=== PATIENT | male | born 2000 | race Caucasian/White ===

== ENCOUNTER 2020-04-16 18:26 | Emergency (ER) | payer OTHER ==
[~2020-04-16] VITALS: Ht 185.4 cm; Wt 87.2 kg
[2020-04-16] MEDS: LIDOCAINE 1% Multi-Dose 20 ML VIAL. IJ ONE (19:39)
[2020-04-16] MEDS: TETANUS AND DIPHTHERIA TOX/PF 0.5 ML VIAL. VAX IM ONE (19:41)
--- NOTE | 2020-04-16 19:54 | PHYS DOC ---
Past History Past Medical History: No Pertinent History Past Surgical History: No Surgical History Alcohol Use: None General Adult EDM: Chief Complaint: LACERATION/AVULSION HPI: HPI: Patient is a 19-year-old right-handed male who was cleaning knives at [employer] and sustained a laceration to the right middle finger. Patient complains of moderate pain on the right middle finger. Patient denies any weakness but has some mild tingling on the right fingertip. No other injuries. Pain is described as moderate in intensity, bleeding is controlled Review of Systems: Review of Systems: Constitutional: Denies fever or chills Eyes: Denies change in visual acuity HENT: Denies sore throat Respiratory: Denies cough or shortness of breath Cardiovascular: Denies chest pain or edema GI: Denies abdominal pain, nausea, vomiting, or diarrhea : Denies dysuria Musculoskeletal: Denies back pain or joint pain Integument: Denies rash Neurologic: Denies headache or focal weakness Psychiatric: Denies depression or anxiety Heart Score: Risk Factors: Risk Factors: DM, Current or recent (<one month) smoker, HTN, HLP, family history of CAD, obesity. Risk Scores: Score 0 - 3: 2.5% MACE over next 6 weeks - Discharge Home Score 4 - 6: 20.3% MACE over next 6 weeks - Admit for Clinical Observation Score 7 - 10: 72.7% MACE over next 6 weeks - Early Invasive Strategies Current Medications: Current Meds: Current Medications Medications (Trade) Dose Ordered Sig/[facility] Start Time Stop Time Status Last Admin Dose Admin Lidocaine HCl 20 ml 1X ONCE 04/16/20 19:00 04/16/20 19:05 DC 04/16/20 19:39 20 ML Tetanus/ Diphtheria Toxoids Adsorbed (Tenivac Vial) 0.5 ml ONCE ONCE 04/16/20 19:30 04/16/20 19:31 DC 04/16/20 19:41 0.5 ML Allergies: Allergies: Allergies Coded Allergies Type Severity Reaction Last Updated Verified No Known Drug Allergies 04/16/20 No Physical Exam: PE: Constitutional: Well developed, well nourished, no acute distress, non-toxic appearance. HENT: No trismus, external ears normal Eyes: Conjunctiva clear, EOMI Neck: Normal range of motion, no tenderness, supple, no stridor. Cardiovascular: Regular rate/rhythm, peripheral pulse intact, EXPLOSION WELDER intact Lungs & Thorax: No respiratory distress Abdomen: No distension Skin: Diffuse: Intact, no rash, 2.5 cm laceration that is vertically oriented on the right palmar third distal phalanx mild decrease sensation distally. Motor intact. Back: Full ROM Extremities: Normal inspection, no edema 2.5 cm laceration on the right distal finger middle Neurologic: Alert and oriented X 3, normal motor function, , mild tingling to the right distal finger, motor intact Psychologic: Affect normal, judgement normal, mood normal. Current Patient Data: Vital Signs: Vital Signs Date Time Temp Pulse Resp B/P (MAP) Pulse Ox O2 Delivery O2 Flow Rate FiO2 04/16/20 18:34 98.4 91 18 144/79 (100) 96 Room Air EKG: EKG: [] Radiology/Procedures: Radiology/Procedures: [] Course & Med Decision Making: Course & Med Decision Making Pertinent Labs and Imaging studies reviewed. (See chart for details) [] Laceration repair note: Right index finger was anesthetized using an alcohol prep and a digital block with 1% lidocaine 3 cc were used to anesthetize to injection sites on a dorsal approach. Good anesthesia was obtained. The laceration was then cleansed with normal saline copiously. Laceration was then repaired with four 5-0 Ethilon simple interrupted sutures. No complications. Laceration was 2.5 cm in length Dragon Disclaimer: Dragbalbir Disclaimer: This electronic medical record was generated, in whole or in part, using a voice recognition dictation system. Departure Departure: Impression: Primary Impression: Laceration of right middle finger Disposition: HOME/RESIDENCE PRIOR TO ADM Condition: STABLE Referrals: PALMER PÉREZ MD (PCP) Stitches out in 10 days Patient Instructions: Fingertip Laceration, Laceration Care, Adult Additional Instructions: EMERGENCY DEPARTMENT GENERAL DISCHARGE INSTRUCTIONS Thank you for coming to the emergency Department (ED) today and trusting us with you care. We trust that you had a positivie experience in our Emergency Department. YOUR FOLLOW UP INSTRUCTIONS ARE FOLLOWS: 1. Do you have a private Doctor? If you do not have a private doctir, please ask for a resource list of physicians or clinics that may be able to assist you with follow up care. 2. The Emergency Physicain has interpreted your x-rays. The X-Ray specialist will also review them. If there is a change in the findingd, you will be notified in 48 hours when at all possible. 3. A lab test or culture has been done, your results will be reviewed and you will be notified if you need a change in treatment. ADDITIONAL INSTRUCTIONS AND INFORMATION: 1. Your care today has been supervised by a physician who is specially trained in emergency care. Many problems require more than one evaluation for a complete diagnosis and treatment. We recommend that you schedule your follow up appointment as recommended to ensure complete treatment of you illness or injury. If you are unable to obtain follow up care and continue to have a problem, or if your consition worsens, we recommend that you return to the ED. 2. We are not able to safelymdetermine your condition over the phone nor are we able to give sound medical advice over the phone. For these safety reasons, if you call for medical advice we will ask you to come to the ED for further evaluation. 3. If you have any questions regarding these discharge instructions please call the ED at [phone]. SAFETY INFORMATION: In the interest of safety, wellness, and injury prevention; we encourage you to wear your sealbelt, if you smoke; quite smoking, and we encourage family to use a protective helmet for bicycling and other sporting events that present an increased risk for head injusry. IF YOUR SYMPTOMS WORSEN OR NEW SYMPTOMS DEVELOP, OR YOU HAVE CONCERNS ABOUT YOUR CONDITION; OR IF YOUR CONDITION WORSENS WHILE YOU ARE WAITING FOR YOUR FOLLOW UP APPOINTMENT; EITHER CONTACT YOUR PRIMARY CARE DOCTOR, THE PHYSICIAN WHOSE NAME AND NUMBER YOU WERE GIVEN, OR RETURN TO THE ED IMMEDIATELY. Justification of Admission: Justification of Admission: Justification of Admission Dx: N/A KANIKA TAYLOR MD Apr 16, 2020 19:54
[2020-04-16 19:58] VITALS: BP 141/73
== END 2020-04-16 20:18 | disposition home or self-care (01) ==
LOC: ER 18:26
DX: S61.212A Laceration without foreign body of right middle finger without damage to nail, initial encounter (principal); W26.0XXA Contact with knife, initial encounter; Y93.89 Activity, other specified; Y92.89 Other specified places as the place of occurrence of the external cause; Y99.8 Other external cause status
CPT/HCPCS: 12001; 90471; 90714; 99283

== ENCOUNTER 2020-04-27 08:54 | Emergency (ER) | payer OTHER ==
[~2020-04-27] VITALS: Ht 185.4 cm; Wt 85.6 kg
[2020-04-27] MEDS ORDERED: NEOMY/BACITR/POLYMYXIN OINT PACKET. TP ONE (09:15)
--- NOTE | 2020-04-27 09:24 | PHYS DOC ---
Past History Past Medical History: No Pertinent History Past Surgical History: No Surgical History Alcohol Use: Occasionally General Adult EDM: Chief Complaint: SUTURE/STAPLE REMOVAL HPI: HPI: Patient is a [age] year old [sex] who presents with [] Review of Systems: Review of Systems: Constitutional: Denies fever or chills Eyes: Denies change in visual acuity HENT: Denies nasal congestion or sore throat Respiratory: Denies cough or shortness of breath Cardiovascular: Denies chest pain or edema GI: Denies abdominal pain, nausea, vomiting, bloody stools or diarrhea : Denies dysuria Musculoskeletal: Denies back pain or joint pain Integument: Denies rash Neurologic: Denies headache, focal weakness or sensory changes Endocrine: Denies polyuria or polydipsia Lymphatic: Denies swollen glands Psychiatric: Denies depression or anxiety Heart Score: Risk Factors: Risk Factors: DM, Current or recent (<one month) smoker, HTN, HLP, family history of CAD, obesity. Risk Scores: Score 0 - 3: 2.5% MACE over next 6 weeks - Discharge Home Score 4 - 6: 20.3% MACE over next 6 weeks - Admit for Clinical Observation Score 7 - 10: 72.7% MACE over next 6 weeks - Early Invasive Strategies Current Medications: Current Meds: Current Medications Medications (Trade) Dose Ordered Sig/Jose David Start Time Stop Time Status Last Admin Dose Admin Neomycin/ Polymyxin/ Bacitracin (Triple Antibiotic Ointment) 1 pkt STK-MED ONCE 04/27/20 09:15 04/27/20 09:15 DC Allergies: Allergies: Allergies Coded Allergies Type Severity Reaction Last Updated Verified No Known Drug Allergies 04/16/20 No Physical Exam: PE: Constitutional: Well developed, well nourished, no acute distress, non-toxic appearance. [] HENT: Normocephalic, atraumatic, bilateral external ears normal, oropharynx moist, no oral exudates, nose normal. [] Eyes: PERRLA, EOMI, conjunctiva normal, no discharge. [] Neck: Normal range of motion, no tenderness, supple, no stridor. [] Cardiovascular:Heart rate regular rhythm, no murmur [] Lungs & Thorax: Bilateral breath sounds clear to auscultation [] Abdomen: Bowel sounds normal, soft, no tenderness, no masses, no pulsatile masses. [] Skin: Warm, dry, no erythema, no rash. [] Back: No tenderness, no CVA tenderness. [] Extremities: No tenderness, no cyanosis, no clubbing, ROM intact, no edema. [] Neurologic: Alert and oriented X 3, normal motor function, normal sensory function, no focal deficits noted. [] Psychologic: Affect normal, judgement normal, mood normal. [] EKG: EKG: [] Radiology/Procedures: Radiology/Procedures: [] Course & Med Decision Making: Course & Med Decision Making Pertinent Labs and Imaging studies reviewed. (See chart for details) [] Dragon Disclaimer: Dragon Disclaimer: This electronic medical record was generated, in whole or in part, using a voice recognition dictation system. Departure Departure: Impression: Primary Impression: Encounter for removal of sutures Disposition: 01 HOME/RESIDENCE PRIOR TO ADM Condition: STABLE Referrals: PALMER PÉREZ MD (PCP) Patient Instructions: Suture Removal Additional Instructions: Do not soak your wound. You may shower. Clean wound daily with soap and water. Change dressing 2 times daily. Use over the counter antibiotic ointment with each dressing change. Justification of Admission: Justification of Admission: Justification of Admission Dx: N/A JOSE DOE DO Apr 27, 2020 09:24
== END 2020-04-27 09:27 | disposition home or self-care (01) ==
LOC: ER 08:54
DX: S61.212D Laceration without foreign body of right middle finger without damage to nail, subsequent encounter (principal); X58.XXXD Exposure to other specified factors, subsequent encounter
CPT/HCPCS: 99282

== ENCOUNTER 2021-01-16 12:35 | Observation (INO) | payer BC ==
[~2021-01-16] VITALS: Ht 185.4 cm; Wt 91.7 kg
[2021-01-16 12:47] VITALS: BP 111/69
[2021-01-16] MEDS ORDERED: PROCHLORPERAZINE 10 MG/2 ML VIAL. IV PRN (13:00)
[2021-01-16 13:34] LABS: BASO % 1 % (0-3); EOS # 0.1 x10^3/uL (0.0-0.7); EOS % 1 % (0-3); HEMOGLOBIN 14.3 g/dL (13.0-17.5); LYMPH % 15 % (24-48); MEAN CORPUSCULAR HEMOGLOBIN 30 pg (25-35); MEAN CORPUSCULAR HGB CONC 34 g/dL (31-37); MEAN CORPUSCULAR VOLUME 89 fL (79-100); MONO # 0.5 x10^3/uL (0.0-1.1); MONO % 7 % (0-9); NEUT # 5.5 x10^3uL (1.8-7.7); NEUT % 77 % (31-73); PLATELET COUNT 221 x10^3/uL (140-400); RED BLOOD COUNT 4.74 x10^6/uL (4.30-5.70); RED CELL DISTRIBUTION WIDTH 13.1 % (11.5-14.5); WHITE BLOOD COUNT 7.2 x10^3/uL (4.0-11.0)
[2021-01-16] MEDS: IV NORMAL SALINE 1,000ML 1,000 ML IV SCH ×6 (13:48→23:17)
[2021-01-16 14:00] LABS: CALCIUM 8.7 mg/dL (8.5-10.1); GFR 95.3; POTASSIUM 4.7 mmol/L (3.5-5.1)
[2021-01-16 14:06] LABS: ALBUMIN 3.9 g/dL (3.4-5.0); ALBUMIN/GLOBULIN RATIO 1.3 (1.0-1.7); TOTAL BILIRUBIN 0.4 mg/dL (0.2-1.0); TOTAL PROTEIN 6.9 g/dL (6.4-8.2)
--- NOTE | 2021-01-16 14:55 | RAD ---
CT SCAN OF THE ABDOMEN AND PELVIS WITH IV CONTRAST. History: Reason: abd pain n v / Spl. Instructions: / History: Comparison:None. Procedure: Contiguous axial images of the abdomen and pelvis were performed after the administration of 75 cc o f Isovue 370 IV contrast. Oral contrast: No. Findings: The appendix is normal. The prostate is not significantly enlarged. The gallbladder appears normal. Liver: Unremarkable Spleen: Unremarkable Pancreas: Unremarkable Adrenal Glands: Unremarkable Kidneys: Unremarkable There is no mass or lymphadenopathy. There is no free air. There is no free fluid. The urinary bladder appears normal. Impression: No acute findings. PQRS Compliance Statement: One or more of the following individualized dose reduction techniques were utilized for this examinat ion: 1. Automated exposure control 2. Adjustment of the mA and/or kV according to patient size 3. Use of iterative reconstruction technique without Electronically signed by: Tc Calero III, MD (01/16/2021 2:53 PM) [facility]
--- NOTE | 2021-01-16 14:59 | RAD ---
XR ABDOMEN 2V, XR CHEST 2V Two-view chest: Technique: PA and lateral views of the chest were obtained. Clinical History: Reason: abd pain n, v / Spl. Instructions: / History: Comparison: None. Findings: The heart and pulmonary vasculature appear within normal limits. The lungs are clear. The pleural ma rgins are clear. Impression: No acute chest process is seen. End impression Two-view abdomen pelvis Supine and upright views There is air scattered throughout large and small bowel. There is no free air. There is no abnormally dilated bowel. IMPRESSION: Nonspecific bowel gas pattern could represent a mild ileus. Electronically signed by: Tc Calero III, MD (01/16/2021 2:57 PM) [facility]
[2021-01-16 15:00] VITALS: BP 93/59
[2021-01-16] MEDS ORDERED: KETOROLAC 30 MG/ML VIAL. IVP PRN (15:45)
[2021-01-16] MEDS ORDERED: diphenhydrAMINE HCL 25 MG CAPSULE PO PRN (15:45)
[2021-01-16 19:00] VITALS: BP 107/64
--- NOTE | 2021-01-16 19:17 | RAD ---
Clinical History: Elevated liver enzymes. Technique: Sonographic examination of the right upper quadrant of the abdomen was performed and mult iple static images were obtained. Comparison: none Findings: Liver: The majority of the liver is visualized and appears homogeneous. Liver is mildly enlarged roscoe suring 18 cm in length. Common bile duct: Appears normal and measures 3 mm in diameter. Gallbladder: appears normal. Pancreas: is not well visualized due to overlying bowel gas but appears within normal limits. Right kidney: appears normal and measures 11 cm in length. Main Portal Vein: Normal hepatopedal flow Aorta: normal IVC: normal Impression: Mild hepatomegaly. No evidence of gallbladder disease. Electronically signed by: Tc Calero III, MD (01/16/2021 7:14 PM) [facility]
[2021-01-16 22:18] LABS: BARBITURATES NEG (NEG); BENZODIAZEPINES NEG (NEG); CANNABINOIDS POS (NEG); COCAINE NEG (NEG); METHADONE NEG (NEG); OPIATES NEG (NEG); PHENCYCLIDINE NEG (NEG)
[2021-01-16 22:23] LABS: AMPHETAMINE/METHAMPHETAMINE NEG (NEG)
--- NOTE | 2021-01-16 22:28 | HP ---
ADMIT DATE: 01/16/2021 HISTORY OF PRESENT ILLNESS: The patient is a 20-year-old male who approximately two hours before being seen in the office, began to have severe intractable nausea, vomiting and abdominal pain with possible fever and chills. He also was markedly diaphoretic. He was incredibly pale appearing when seen and despite the use of Zofran, the patient still continued to have bouts of nausea and vomiting, as a result of this was admitted to the hospital for further evaluation and treatment thereof. PAST MEDICAL HISTORY: Nothing significant, ear infections and ingrown toenails. MEDICATIONS: The patient currently takes no medication at home. FAMILY HISTORY: Noncontributory. ALLERGIES: He has no known allergies. SOCIAL HISTORY: Denies smoking, alcohol or drug use. Full code. REVIEW OF SYSTEMS: The patient's review of systems, severe epigastric pain with nausea, vomiting and chilling and feeling incredibly ill. The patient otherwise denies headaches, visual changes, neck stiffness. Denies any problems breathing per se except for mild shortness of breath, no chest pain, epigastric pain primarily, has had some bowel movements in the last few days. Nothing exaggerated and neurologically stable. PHYSICAL EXAMINATION: GENERAL: This is a pleasant white male, looking incredibly ill as noted extremely pale. VITAL SIGNS: Blood pressure is 100/68, heart rate ____ 90, respiratory rate 20, temperature 98.6, 98% on room air. The patient is ill appearing as noted, quite pale. HEENT: Atraumatic, normocephalic. EYES: PERRLA. No jaundice noted. Mouth and throat normal. NECK: Supple. LUNGS: Diminished but clear. CARDIOVASCULAR: Regular sinus rhythm. ABDOMEN: Soft. Definite tenderness in the epigastric right upper quadrant areas. No masses could be felt. No hepatosplenomegaly. EXTREMITIES: Without clubbing, cyanosis, nor edema. NEUROLOGIC: The patient alert and oriented. Speech was spontaneous, although gagging while we were talking and having problems really communicating more from the nausea and actual vomiting, which was kind of by bilious-appearing. LABORATORY DATA: The patient's labs did show elevated liver enzymes in the range of AST 41, ALT of 73, total bilirubin was normal. Glucose slightly elevated at 110, hemoglobin and hematocrit were stable 14 and 42. The patient had series of scans. The abdominal CT basically showed no obvious abnormalities. ASSESSMENT AND PLAN: The patient otherwise continued to be monitored there. He also had chest x-ray, it was negative. Abdominal KUB shows ileus. The patient does have an abdominal ultrasound for the elevated liver enzymes and we are awaiting for the results on that. Otherwise, the patient is receiving boluses of fluid, liter over an hour and back down to 200 mL an hour. He is dehydrated. We have tried Zofran and now Compazine for his nausea and vomiting see if we could bring that under control and make further adjustments on his medications as the abdominal ultrasound comes back ____ for labs and vital signs. Keep the patient as comfortable as possible. FÉLIX/ESTEFANIA DR: QUINCY/danyell TID: [id number]
[2021-01-16 22:29] LABS: BACTERIA,URINE 0 /HPF (0-FEW); BILIRUBIN,URINE NEG (NEG); CLARITY,URINE CLEAR; COLOR,URINE AMBER; GLUCOSE,URINE NEG (NEG); NITRITE,URINE NEG (NEG); UROBILINOGEN,URINE 0.2 mg/dL (0.2 mg/dL)
[2021-01-17] MEDS: IV NORMAL SALINE 1,000ML 1,000 ML IV SCH ×12 (00:17→07:27)
[2021-01-17 05:32] VITALS: BP 104/57
[2021-01-17] MEDS: PANTOPRAZOLE IV 40 MG VIAL. IVP SCH ×3 (07:17→09:34)
[2021-01-19 19:11] LABS: EBNA IGG <18.0 U/mL (0.0-17.9)
== END 2021-01-17 13:27 | disposition home or self-care (01) ==
LOC: 1 SOUTH 12:35 → INTOOBSV 12:35
PROVIDERS: ADMIT Family Medicine; ATTEND Family Medicine
DX: E86.0 Dehydration (principal); R10.13 Epigastric pain; R10.31 Right lower quadrant pain; F17.210 Nicotine dependence, cigarettes, uncomplicated; Z79.899 Other long term (current) drug therapy
CPT/HCPCS: 36415; 71046; 74019; 74176; 76705; 80053; 80307; 81001; 83605; 83690; 85025; 86664; 86665; 86705; 86709; 86803; 87040; 87340; 96361; 96374; 96375; 99406; C9113; G0378; G0379; J0780; J7030